=== PATIENT | male | born 1960 | race Two or more races ===

== ENCOUNTER 2017-01-04 04:08 | Emergency (ER) | payer OTHER ==
[~2017-01-04] VITALS: Ht 180.3 cm; Wt 85.0 kg
[2017-01-04] MEDS ORDERED: SODIUM CHLORIDE 0.9% 1,000 ML IV ONE (04:54)
[2017-01-04] MEDS ORDERED: SODIUM CHLORIDE 0.9% 1,000ML IV ONE (05:00)
[2017-01-04] MEDS ORDERED: DIAZEPAM 5 MG/ML, 2ML IVPush ONE (05:00)
[2017-01-04] MEDS ORDERED: KETOROLAC 30 MG/1 ML IVPush ONE (05:00)
[2017-01-04] MEDS ORDERED: AMLO-472 PO (05:19)
[2017-01-04] MEDS ORDERED: HYDR25TA6 PO (05:19)
[2017-01-04 05:30] LABS: HEMATOCRIT 48.1 % (39.2-51.8); HEMOGLOBIN 16.2 g/dL (13.7-18.0); WHITE BLOOD COUNT 4.9 x10^3/uL (3.4-10)
[2017-01-04] MEDS ORDERED: DIAZEPAM 5 MG/ML, 2ML ONE (05:40)
[2017-01-04] MEDS ORDERED: KETOROLAC 30 MG/1 ML ONE (05:40)
[2017-01-04 05:49] LABS: BLOOD UREA NITROGEN 10 mg/dL (7-18)
[2017-01-04 05:53] LABS: ASPARTATE AMINO TRANSFERASE 23 U/L (15-37)
[2017-01-04 07:46] VITALS: BP 112/67
== END 2017-01-04 07:48 | disposition home or self-care (01) ==
LOC: ED 04:26
DX: M54.5 Low back pain (principal); K59.00 Constipation, unspecified; I10 Essential (primary) hypertension
CPT/HCPCS: 36415; 74000; 76770; 80053; 81003; 83690; 85025; 96361; 96374; 96375; 99285; J1885; J3360; J7030